=== PATIENT | female | born 1965 | race Caucasian/White ===

== ENCOUNTER → 2021-01-21 | Outpatient (CLI) | payer BC | LOC: SLEEP-COR 11:51 | DX: G47.33 Obstructive sleep apnea (adult) (pediatric) (principal); R53.83 Other fatigue; R51.9 Headache, unspecified; R41.3 Other amnesia; R06.83 Snoring | CPT/HCPCS: 95810 ==

== ENCOUNTER → 2022-03-23 | Outpatient (CLI) | payer BC | LOC: EMI 15:37 | DX: G43.109 Migraine with aura, not intractable, without status migrainosus (principal); R20.0 Anesthesia of skin; R41.3 Other amnesia | CPT/HCPCS: 70551 ==